=== PATIENT | female | born 1960 | race Caucasian/White ===

== ENCOUNTER 2022-12-03 20:43 | Emergency (ER) | payer BC ==
--- OUTSIDE RECORDS SUMMARY | 2022-12-03 20:50 | XMS REPORT | Continuity of Care Document ---
:1960 Author Organization [facility] t Address [address] [place] [address] [place] [address] Care Team Providers Name Role Phone Simi Encinas MD Primary Care Physician CITLALLI CHATMAN Attending Clinician Unavailable NAVDEEP ERIC Attending Clinician Unavailable NAVDEEP ERIC Attending Clinician Unavailable Navdeep Eric MD Attending Clinician Mathew Attending Clinician Unavailable ESEQUIEL CRYSTAL Attending Clinician Unavailable Mathew Admitting Clinician Unavailable Payers Payer Name Policy Type Policy Number Effective Date Expiration Date S [facility] [id number] 2019 POS OPEN ACCESS 00:00:00 [place] [id number] 2022 [place]00[id number] 2022 [place] 00:00:00 [id number] [place] [id number] Problems Condition Condition Condition Status Onset Resolution Last Treating Co mments Source Name Details Category Date Date Treatment Clinician Date Cervical Cervical Problem Active [place] spondylosi Spondylosi 4-25 [facility] Lumbar Lumbar Problem Active [place] spondylosi Spondylosi 4-25 [facility] s 00:00: ty 00 [facility] 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 Hyperostos 00 Ho spita is of is of l thoracic Thoracic Clinic s spine Spine Nausea Nausea Problem Active 2021-07 [place] 07-18 Communi 00:00: ty 00 [facility]ospita Clinics Diarrhea Diarrhea Problem Active 2021-07 [place] 07-18 [facility]i 00:00: ty 00 [facility] Clinics History of History of Problem Active 2021-07 [place] diverticul Diverticul 07-18 [facility] mmuni itis itis 00:00: ty 00 Hospita Clinics Viral Viral Problem Active 2021-07 [place] syndrome Syndrome 07-18 Commun i 00:00: ty 00 Hospita Clinics Fever Fever Problem Active 2021-07 [place] 07-18 [facility] 00[facility]: [facility] Allergies, Adverse Reactions, Alerts Allergy Allergy Status Severity Reaction(s) Onset Inactive Treating Comm ents Source Name Type Date Date Clinician NO KNOWN Drug Active Univers ALLERGIE Class ity of S [facility] TERRAMYC Allergy Active [place] IN to Communi substanc ty e Hospita Clinics Social History Social Habit Start Date Stop Date Quantity Comments Source Gender identity [facility] Sexual orientation Method [facility] History of tobacco Cigarette Smoker University of use [facility] Exposure to 2022-11-20 2022-11-30 Not sure [facility] SARS-CoV-2 (event) 00:00:00 08:09:00 [facility] Tobacco use and 2022-11-30 2022-11-30 Smokeless Universit y of exposure 00:00:00 00:00:00 tobacco non-user [facility] dical Branch Cigarettes smoked 2022-11-30 2022-11-30 Univers ity of current (pack per 00:00:00 00:00:00 [facility] ) - Reported Branch Cigarette 2022-11-30 2022-11-30 University of pack-years 00:00:00 00:00:00 [facility] Sex Assigned At [birth year] [facility] Smoking Status Start Date Stop Date Source Heavy Tobacco Smoker [place] Comm [facility] [place] [facility] Tobacco smoking consumption Meth [facility] unknown Smokes tobacco daily 2022-11-30 00:00:00 Univers ity of [facility] Medications Ordered Filled Start Stop Current Ordering Indication Dosage Frequency Signature Comments Components Source Medication Medication Date Date Medication? Clinician (SIG) Name Name alprazolam alprazolam No alprazolam [place] 0.25 mg 0.25 mg 0.25 mg Commun i tablet TAKE tablet TAKE tablet ty 1 TABLET BY 1 TABLET BY TAKE 1 Hospita MOUTH AT MOUTH AT TABLET BY l BEDTIME BEDTIME MOUTH AT Clinics NEEDED NEEDED BEDTIME NEEDED cyclobenzap cyclobenzap No cyclobenza [place] rine 5 mg rine 5 mg nabor 5 mg Communi tablet TAKE tablet TAKE tablet ty 1 TABLET BY 1 TABLET BY TAKE 1 Hospita MOUTH THREE MOUTH THREE TABLET BY l TIMES DAILY TIMES DAILY MOUTH Clinics FOR 3 DAYS FOR 3 DAYS THREE NEEDED NEEDED TIMES DAILY FOR 3 DAYS NEEDED dicyclomine dicyclomine No 1 TID dicyclomin [place] 20 mg 20 mg e 20 mg Communi tablet Take tablet Take tablet ty 1 tablet 3 1 tablet 3 Take 1 H ospita times a day times a day tablet 3 l by oral by oral times a Clinic s route as route as day by needed for needed for oral route 3 days. FOR 3 days. FOR as needed ABDOMINAL ABDOMINAL for 3 CRAMPING CRAMPING days. FOR ABDOMINAL CRAMPING meclizine meclizine No 1 TID meclizine [place] 25 mg 25 mg 25 mg Communi tablet Take tablet Take tablet ty 1 tablet 3 1 tablet 3 Take 1 H ospita times a day times a day tablet 3 l by oral by oral times a Clinic s route. route. day by oral route. dicyclomine dicyclomine No 1 TID dicyclomin [place] 20 mg 20 mg e 20 mg Communi tablet Take tablet Take tablet ty 1 tablet 3 1 tablet 3 Take 1 H ospita times a day times a day tablet 3 l by oral by oral times a Clinic s route as route as day by needed for needed for oral route 3 days. FOR 3 days. FOR as needed ABDOMINAL ABDOMINAL for 3 CRAMPING CRAMPING days. FOR ABDOMINAL CRAMPING ondansetron ondansetron No 1 TID ondansetro [place] 4 mg 4 mg n 4 mg Communi disintegrat disintegrat disintegra ty ing tablet ing tablet ting [facility] Place 1 Place 1 tablet l tablet [address] 1 Clin ics times a day times a day tablet 3 by by times a translingua translingua day by l route as l route as translingu needed for needed for al route 3 days. FOR 3 days. FOR as needed NAUSEA/VOMI NAUSEA/VOMI for 3 TING TING days. FOR NAUSEA/VOM ITING alprazolam alprazolam No 1 alprazolam [place] 0.25 mg 0.25 mg 0.25 mg Commun i tablet Take tablet Take tablet ty 1 tablet as 1 tablet as Take 1 Hospita needed by needed by tablet as l oral route oral route needed by Clinics at bedtime. at bedtime. oral route at bedtime. cyclobenzap cyclobenzap No 1 TID cyclobenza [place] rine 5 mg rine 5 mg nabor 5 mg Communi tablet Take tablet Take tablet ty 1 tablet 3 1 tablet 3 Take 1 H ospita times a day times a day tablet 3 l by oral by oral times a Clinic s route as route as day by needed for needed for oral route 3 days. 3 days. as needed for 3 days. dicyclomine dicyclomine No 1 TID dicyclomin [place] 20 mg 20 mg e 20 mg Communi tablet Take tablet Take tablet ty 1 tablet 3 1 tablet 3 Take 1 H ospita times a day times a day tablet 3 l by oral by oral times a Clinic s route as route as day by needed for needed for oral route 3 days. FOR 3 days. FOR as needed ABDOMINAL ABDOMINAL for 3 CRAMPING CRAMPING days. FOR ABDOMINAL CRAMPING alprazolam alprazolam No alprazolam [place] 0.25 mg 0.25 mg 0.25 mg Commun i tablet TAKE tablet TAKE tablet ty 1 TABLET BY 1 TABLET BY TAKE 1 Hospita MOUTH AT MOUTH AT TABLET BY l BEDTIME BEDTIME MOUTH AT Clinics NEEDED NEEDED BEDTIME NEEDED cyclobenzap cyclobenzap No cyclobenza [place] rine 5 mg rine 5 mg nabor 5 mg Communi tablet TAKE tablet TAKE tablet ty 1 TABLET BY 1 TABLET BY TAKE 1 Hospita MOUTH THREE MOUTH THREE TABLET BY l TIMES DAILY TIMES DAILY MOUTH Clinics FOR 3 DAYS FOR 3 DAYS THREE NEEDED NEEDED TIMES DAILY FOR 3 DAYS NEEDED dicyclomine dicyclomine No 1 TID dicyclomin [place] 20 mg 20 mg e 20 mg Communi tablet Take tablet Take tablet ty 1 tablet 3 1 tablet 3 Take 1 H ospita times a day times a day tablet 3 l by oral by oral times a Clinic s route as route as day by needed for needed for oral route 3 days. FOR 3 days. FOR as needed ABDOMINAL ABDOMINAL for 3 CRAMPING CRAMPING days. FOR ABDOMINAL CRAMPING meclizine meclizine No 1 TID meclizine [place] 25 mg 25 mg 25 mg Communi tablet Take tablet Take tablet ty 1 tablet 3 1 tablet 3 Take 1 H ospita times a day times a day tablet 3 l by oral by oral times a Clinic s route. route. day by oral route. alprazolam alprazolam No alprazolam [place] 0.25 mg 0.25 mg 0.25 mg Commun i tablet TAKE tablet TAKE tablet ty 1 TABLET BY 1 TABLET BY TAKE 1 Hospita MOUTH AT MOUTH AT TABLET BY l BEDTIME BEDTIME MOUTH AT Clinics NEEDED NEEDED BEDTIME NEEDED cyclobenzap cyclobenzap No cyclobenza [place] rine 5 mg rine 5 mg [place] 5 mg Communi tablet TAKE tablet TAKE tablet ty 1 TABLET BY 1 TABLET BY TAKE 1 Hospita MOUTH THREE MOUTH THREE TABLET BY l TIMES DAILY TIMES DAILY MOUTH Clinics FOR 3 DAYS FOR 3 DAYS THREE NEEDED NEEDED TIMES DAILY FOR 3 DAYS NEEDED dicyclomine dicyclomine No 1 TID dicyclomin [place] 20 mg 20 mg e 20 mg Communi tablet Take tablet Take tablet ty 1 tablet 3 1 tablet 3 Take 1 H ospita times a day times a day tablet 3 l by oral by oral times a Clinic s route as route as day by needed for needed for oral route 3 days. FOR 3 days. FOR as needed ABDOMINAL ABDOMINAL for 3 CRAMPING CRAMPING days. FOR ABDOMINAL CRAMPING meclizine meclizine No 1 TID meclizine [place] 25 mg 25 mg 25 mg Communi tablet Take tablet Take tablet ty 1 tablet 3 1 tablet 3 Take 1 H ospita times a day times a day tablet 3 l by oral by oral times a Clinic s route. route. day by oral route. Vital Signs Vital Name Observation Time Observation Value Comments Source BP Diastolic 2022-11-12 00:00:00 78 mm[Hg] [facility] Height 2022-11-12 00:00:00 66 [in_i] [facility] BMI (Body Mass 2022-11-12 00:00:00 26.2 kg/m2 [facility]) [facility] BP Systolic 2022-11-12 00:00:00 156 mm[Hg] [facility] Body Weight 2022-11-12 00:00:00 2595.2 [oz_av] [facility] Body Weight 2022-11-03 00:00:00 2601.6 [oz_av] [facility] s BP Diastolic 2022-11-03 00:00:00 85 mm[Hg] [facility] Height 2022-11-03 00:00:00 66 [in_i] [facility] s BMI (Body Mass 2022-11-03 00:00:00 26.2 kg/m2 [facility] BP Systolic 2022-11-03 00:00:00 165 mm[Hg] [facility] BP Diastolic 2022-10-27 00:00:00 75 mm[Hg] [facility] Height 2022-10-27 00:00:00 66 [in_i] [facility] BMI (Body Mass 2022-10-27 00:00:00 26.1 kg/m2 [facility] BP Systolic 2022-10-27 00:00:00 154 mm[Hg] [facility] Body Weight 2022-10-27 00:00:00 2582.4 [oz_av] [facility] s BP Diastolic 2022-10-13 00:00:00 76 mm[Hg] [facility] Height 2022-10-13 00:00:00 66 [in_i] [facility] s BP Systolic 2022-10-13 00:00:00 174 mm[Hg] [facility] Body Weight 2022-10-13 00:00:00 2569.6 [oz_av] [facility] s BP Diastolic 2022-05-18 00:00:00 84 mm[Hg] [facility] Height 2022-05-18 00:00:00 66 [in_i] [facility] s BMI (Body Mass 2022-05-18 00:00:00 23.2 kg/m2 [facility] BP Systolic 2022-05-18 00:00:00 132 mm[Hg] [facility] Body Weight 2022-05-18 00:00:00 2297.6 [oz_av] [facility] s Procedures Procedure Date / Time Performing Clinician Source Performed XR, cervical spine, 4 or 2022-10-19 00:00:[address] XR, lumbar spine 2022-10-19 00:00:00 [facility] XR, thoracic spine, 2 2022-10-19 00:00:00 [facility] US, upper arm 2022-10-13 00:00:00 [facility] XR, hand, 2 view 2022-10-13 00:00:00 [facility] Cholelithotomy [facility] Methicillin Resistant [facility] Staphylococcus Aureus [facility] linics Swab Laparoscopic Adjustable [facility] G[facility] Banding [facility] Appendectomy [facility] Repair of Tendo Achilles [facility] Delivery [facility] Plan of Care Planned Activity Planned Date Details Comments Source Future Scheduled Test 2022-12-03 COLONOSCOPY Method [facility] 20:49:10 SCREENING [code = COLONOSCOPY SCREENING] Future Scheduled Test 2022-12-03 SHINGLES VACCINES (1 [facility] 20:49:10 of 2) [code = SHINGLES VACCINES (1 of 2)] Future Scheduled Test 2022-12-03 INFLUENZA VACCINE [facility] 20:49:10 [code = INFLUENZA VACCINE] Future Scheduled Test 2022-12-03 COVID-19 VACCINE [facility] 20:49:10 (#1) [code = COVID-19 VACCINE (#1)] Future Scheduled Test 2022-12-03 Hepatitis C Method [facility] 20:49:10 screening (procedure) [code = 341565295] Future Scheduled Test 2022-12-03 [facility] 20:49:10 malignant neoplasm of cervix (procedure) [code = 788412274] Future Scheduled Test 2022-12-03 BREAST CANCER [facility] 20:49:10 SCREENING [code = BREAST CANCER SCREENING] Future Scheduled Test 2022-10-16 Hepatitis C Method [facility] 05:26:00 screening (procedure) [code = 206570828] Future Scheduled Test 2022-10-16 [facility] 05:26:00 malignant neoplasm of cervix (procedure) [code = 547028091] Future Scheduled Test 2022-10-16 BREAST CANCER [facility] 05:26:00 SCREENING [code = BREAST CANCER SCREENING] Future Scheduled Test 2022-10-16 COLONOSCOPY Method [facility] 05:26:00 SCREENING [code = COLONOSCOPY SCREENING] Future Scheduled Test 2022-10-16 SHINGLES VACCINES (1 [facility] 05:26:00 of 2) [code = SHINGLES VACCINES (1 of 2)] Future Scheduled Test 2022-10-16 INFLUENZA VACCINE [facility] 05:26:00 [code = INFLUENZA VACCINE] Future Scheduled Test 2022-10-16 COVID-19 VACCINE [facility] 05:26:00 (#1) [code = COVID-19 VACCINE (#1)] Instructions [facility] s Encounters Start End Encounter Admission Attending Care Care Encounter Source Date/Time Date/Time Type Type Clinicians Facility Department ID 2021-06-04 Outpatient [facility] [id number] [place] 17:02:53 Health 2021-05-28 Outpatient LURDES [facility] [id number] [place] 14:31:05 [facility] 2023-01-25 2023-01-25 Outpatient NAVDEEP HERNANDEZ [facility] [id number] [facility] 14:20:00 14:20:00 NAVDEEP ERIC [facility] 2022-11-30 2022-11-30 Outpatient NAVDEEP HERNANDEZ [facility] [id number] [facility] 08:40:00 09:09:50 NAVDEEP ERIC [facility] 2022-11-30 2022-11-30 Tim Eric [facility] [id number] Univers 00:00:00 00:00:00 (Out) [facility] [id number] [place] [id number] Santos as SANDEEP?BLEA [id number] [place] [id number] [facility] OFFICE [facility] 2022-11-17 2022-11-17 Outpatient L_[facility] [id number] [place] 00:00:00 00:00:00 0509 Commun i ty Hospita l [facility] 2022-11-13 2022-11-13 Outpatient L_[facility] [id number] [place] 00:00:00 00:00:00 0508 Commun i ty Hospita l [facility] 2022-11-12 2022-11-12 Outpatient L_[facility] [id number] [place] 00:00:00 00:00:00 0504 Commun i ty Hospita [facility] 2022-11-12 2022-11-12 [facility] [place] [facility] [place] 04 [place] 00:00:00 00:00:00 Hemant Counts Include 234 Beds At The [facility] KAMLESH Balderas APRN, [facility]: [address], [facility] [address] [place] [phone] , Ph. 2022-11-11 2022-11-11 Outpatient L_[facility] [id number] [place] 00:00:00 00:00:00 0503 Commun i ty Hospita [facility] 2022-11-03 2022-11-03 [facility] [place] [facility] [place] [id number] 25 [place] 00:00:00 00:00:00 Hemant Counts Include 234 Beds At The [facility] Trinh collins APRN, KAMLESH, [facility]: [address], [facility] [address] [place] [phone] , Ph. 2022-10-27 2022-10-27 Outpatient L_[facility] [id number] 023 [place] 00:00:00 00:00:00 0418 Commun i ty Hospita l Clinics 2022-10-27 2022-10-27 Outpatient L_Pena [facility] [id number] [place] 00:00:00 00:00:00 0420 Commun i ty Hospita l Clinics 2022-10-27 2022-10-27 Outpatient L_Pena [facility] [id number] [place] 00:00:00 00:00:00 0425 Commun i ty Hospita l Clinics 2022-10-27 2022-10-27 Sheri [facility] [place] 18 [place] 00:00:00 00:00:00 Pat Marcos APRN, MSN, [facility]: [facility] [address] [place] [address], CLINIC [address] [place] [phone] , Ph. 2022-10-26 2022-10-26 Outpatient L_Pena [facility] [id number] [place] 00:00:00 00:00:00 0417 Commun i ty Hospita l Clinics 2022-10-22 2022-10-22 Outpatient L_Pena [facility] [id number] [place] 00:00:00 00:00:00 0413 Commun i ty Hospita l Clinics 2022-10-13 2022-10-13 Outpatient L_Pena [facility] [id number] [place] 00:00:00 00:00:00 0404 Commun i ty Hospita l Clinics 2022-10-13 2022-10-13 [facility] [place] [facility] [place] 04 [place] 00:00:00 00:00:00 Hemant Counts Include 234 Beds At The [facility] Trinh collins APRN, MSN, [facility]: [facility] [address] [place] [address], CLINIC [address] [place] [phone] , Ph. 2022-10-12 2022-10-12 Outpatient L_Pena [facility] [id number] [place] 00:00:00 00:00:00 0403 Commun i ty Hospita l Clinics 2022-09-10 2022-09-10 Outpatient L_Hemant [facility] [id number] [place] 00:00:00 00:00:00 0302 Commun i ty Hospita [facility] 2022-05-18 2022-05-18 Outpatient L_Hemant [facility] [id number] [place] 00:00:00 00:00:00 1107 Commun i ty Hospita [facility] 2022-05-18 2022-05-18 Sheri [facility] [place] [facility] [place] [id number] [place] 00:00:00 00:00:00 Pat Marcos Comm karina BARNES, MSN, Hospital - ty [facility]: [address], CLINIC [address], [place] [phone] , Ph. 2021-09-19 2021-09-19 Outpatient MHIE [facility] [id number] [place] 07:30:00 07:30:00 10 bhanu Wu 2021-09-19 2021-09-19 Outpatient MHIE [facility] [id number] [facility] 07:30:00 07:30:00 10 bhanu Wu 2021-05-26 2021-05-26 Outpatient MHIE [facility] [id number] [facility] 14:00:00 14:00:00 09 bhanu Wu 2021-05-26 2021-05-26 Outpatient MHIE [facility] [id number] [place] 14:00:00 14:00:00 09 bhanu Wu 2021-03-11 2021-03-11 Outpatient MHIE MHIE [id number] [facility] 16:15:00 16:15:00 08 bhanu Wu 2021-03-11 2021-03-11 Outpatient MHIE [facility] [id number] [facility] 16:15:00 16:15:00 08 bhanu Wu 2020-12-19 2020-12-19 Outpatient MARAH [facility] [id number] 00:00:00 00:00:00 ESEQUIEL Herzog [facility] 2020-09-16 2020-09-16 Outpatient MHIE MHIE [id number] [place] 08:30:00 08:30:00 07 bhanu Wu 2020-09-16 2020-09-16 Outpatient MHIE [facility]IE [id number] [facility] 08:30:00 08:30:00 07 l Bryce 2020-07-18 2020-07-18 Outpatient MHIE [facility] [id number] [facility] 12:15:00 12:15:00 06 l Bryce 2020-07-18 2020-07-18 Outpatient MHIE [facility]IE [id number] [facility] 12:15:00 12:15:00 06 l Bryce 2020-05-27 2020-05-27 Outpatient MHIE [facility] [id number] [facility] 12:15:00 12:15:00 05 l [place] 2020-05-27 2020-05-27 Outpatient MHIE MHIE [id number] [facility] 12:15:00 12:15:00 05 l [place] 2020-01-23 2020-01-23 Outpatient MHIE MHIE [id number] [facility] 15:30:00 15:30:00 04 l [place] 2020-01-23 2020-01-23 Outpatient MHIE MHIE [id number] [facility] 15:30:00 15:30:00 04 l [place] 2019-08-23 2019-08-23 Outpatient MHIE MHIE [id number] [facility] 10:30:00 10:30:00 02 l Bryce 2019-08-23 2019-08-23 Outpatient MHIE [facility] [id number] [facility] 10:30:00 10:30:00 02 l Bryce 2019-08-23 2019-08-23 Outpatient MHIE [facility]IE [id number] [facility] 10:15:00 10:15:00 03 l Bryce 2019-08-23 2019-08-23 Outpatient MHIE [facility] [id number] [facility] 10:15:00 10:15:00 03 l Bryce 2019-08-22 2019-08-22 Outpatient MHIE [facility] [id number] [facility] 10:15:00 10:15:00 01 l [place] 2019-08-22 2019-08-22 Outpatient MHIE MHIE [id number] [facility] 10:15:00 10:15:00 01 l [place] 2019-08-15 2019-08-15 Outpatient MHIE [facility]IE [id number] [facility] 13:30:00 13:30:00 00 l Bryce 2019-08-15 2019-08-15 Outpatient [facility] [id number] [facility] 13:30:00 13:30:00 00 bhanu Wu Results This patient has no known results.
--- NOTE | 2022-12-03 22:11 | RAD REPORT ---
EXAM DESCRIPTION: CT - Head Brain Wo Cont - 12/03/2022 9:57 pm CLINICAL HISTORY: Dizziness COMPARISON: none TECHNIQUE: Computed axial tomography of the head was obtained. IV contrast was not requested. All CT scans are performed using dose optimization technique as appropriate and may include automated exposure control or mA/KV adjustment according to patient size. FINDINGS: An intracranial bleed is not seen The ventricles are normal in caliber No significant hypodense areas within the brain visualized No extra-axial fluid collection is noted. Fluid within the sinuses/ mastoids is not seen IMPRESSION: No acute intracranial abnormality is seen If patient's symptoms persist MRI of the brain would be recommended
[2022-12-03] MEDS ORDERED: MECLIZINE HCL 12.5 MG TAB ONE (22:16)
[2022-12-03 22:31] LABS: Hematocrit 38.3 % (36.0-45.0); Lymphocytes % 27.3 % (15.3-44.8); MCV 90.2 fL (80-100); MPV 8.2 fL (7.6-11.3); RBC Red Blood Cell Count 4.24 M/uL (3.86-4.86)
[2022-12-03 22:47] LABS: ALT/SGPT 25 U/L (13-56); AST/SGOT 20 U/L (15-37); Albumin 3.4 g/dL (3.4-5.0); Alkaline Phosphatase 69 U/L (45-117); BUN Blood Urea Nitrogen 14 mg/dL (7-18); Bicarbonate 26 mEq/L (21-32); Bilirubin Total 0.2 mg/dL (0.2-1.0); Glomerular Filtration Rate 79 ml/min (=/>90); Glucose Level 114 mg/dL (74-106); Potassium 3.7 mEq/L (3.5-5.1); Protein, Total 7.3 g/dL (6.4-8.2); Sodium Level 141 mEq/L (136-145); Troponin High Sensitivity 5.2 pg/mL (<58.9)
[2022-12-03 22:59] LABS: Bilirubin Direct < 0.1 mg/dL (0-0.2); Bilirubin Indirect, Calculated ND mg/dL (0.2-0.8)
[2022-12-03 23:01] LABS: Protime INR 0.89
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
[2022-12-04 01:13] VITALS: BP 152/67; TEMP 98; O2SAT 98
--- NOTE | 2022-12-04 10:30 | RAD REPORT ---
EXAM DESCRIPTION: RAD - Chest Single View - 12/03/2022 10:55 pm CLINICAL HISTORY: CHEST PAIN COMPARISON: 10/22/2022. TECHNIQUE: XR CHEST 1 VIEW 12/03/2022 9:39 PM CDT FINDINGS: Cardiac silhouette is normal in size. Lungs are clear without consolidation, atelectasis, mass or edema. There is no pleural effusion. There is no pneumothorax. There are no acute osseous fin dings. IMPRESSION: Clear lungs. Electronically signed by: Serg Lund MD 12/03/2022 11:14 PM CDT Due to temporary technical issues with the PACS/Fluency reporting system, reports are being signed by the in house radiologist without review as a courtesy to ensure prompt reporting. The interpreting r adiologist is fully responsible for the content of the report.
--- NOTE | 2022-12-06 07:31 | EKG ---
Test Date: 2022-12-03 Test Time: 21:12:15 Clinical Trial Data Manager: ABDIAZIZ MEASUREMENT RESULTS: Intervals: Rate: 65 MD: 132 QRSD: 86 QT: 414 QTc: 430 [place]: P: 66 MD: 132 QRS: 43 T: 74 INTERPRETIVE STATEMENTS: Normal sinus rhythm Nonspecific ST abnormality Abnormal ECG Compared to ECG 10/22/2022 06:29:14 ST (T wave) deviation now present Electronically Signed On 12-06-22 07:25:56 CDT by Xu Steele
== END 2022-12-04 00:52 | disposition home or self-care (01) ==
LOC: ER 20:43
DX: R42 Dizziness and giddiness (principal); R11.0 Nausea; R07.9 Chest pain, unspecified; Z88.3 Allergy status to other anti-infective agents
CPT/HCPCS: 93005; 85025; 80048; 36415; 83735; 85610; 80076; 85730; 84484; 70450; 71045; 99284; J8597

== ENCOUNTER 2022-12-14 20:52 | Observation (INO) | payer BC ==
--- OUTSIDE RECORDS SUMMARY | 2022-12-14 21:21 | XMS REPORT | Continuity of Care Document ---
:1960 Author Organization [facility] t Address [address] [facility] [address] [place] [address] Care Team Providers Name Role Phone JUSTIN MARCOS Primary Care Physician Unavailable CITLALLI CHATMAN Attending Clinician Unavailable NAVDEEP ERIC Attending Clinician Unavailable NAVDEEP ERIC Attending Clinician Unavailable Mathew Attending Clinician Unavailable Navdeep Eric MD Attending Clinician ESEQUIEL CRYSTAL Attending Clinician Unavailable LSharda Admitting Clinician Unavailable Payers Payer Name Policy Type Policy Number Effective Date Expiration Date S elin [facility] [id number] 2019 POS OPEN ACCESS 00:00:00 [place] [id number] 2022 00:00:[place] [id number] 2022 [place] 00:00:00 [id number] [place] [id number] Problems Condition Condition Condition Status Onset Resolution Last Treating Co mments Source Name Details Category Date Date Treatment Clinician Date Cervical Cervical Problem Active [place] spondylosi Spondylosi 4-25 [facility] ty [facility] Lumbar Lumbar Problem Active [place] spondylosi Spondylosi 4-25 [facility] s 00:00: ty [facility] 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:00: ty hyperostos Hyperostos 00 Ho spita is of is of l thoracic Thoracic Clinic s spine Spine Nausea Nausea Problem Active 2021-07 [place] 07-18 Communi 00:00: ty 00 Hospita Clinics Diarrhea Diarrhea Problem Active 2021-07 [place] y 07-18 Communi 00:00: ty 00 [facility]ospita [facility] Clinics History of History of Problem Active 2021-07 S weeny diverticul Diverticul 07-18 Co mmuni itis itis 00:00: ty 00 Hospita Clinics Viral Viral Problem Active 2021-07 [place] syndrome Syndrome 07-18 Commun i 00:00: ty 00 Hospita l Clinics Fever Fever Problem Active 2021-07 [place] 07-18 [facility] Allergies, Adverse Reactions, Alerts Allergy Allergy Status Severity Reaction(s) Onset Inactive Treating Comm ents Source Name Type Date Date Clinician NO KNOWN Drug Active [facility] ALLERGIE Class ity of S [facility] TERRAMYC Allergy Active [place] IN to Communi substanc ty e Hospita l Clinics Social History Social Habit Start Date Stop Date Quantity Comments Source Gender identity [facility] Sexual orientation [facility] History of tobacco Cigarette Smoker University of use [facility] Exposure to 2022-11-20 2022-11-30 Not sure [facility] SARS-CoV-2 (event) 00:00:00 08:09:00 [facility] Tobacco use and 2022-11-30 2022-11-30 Smokeless Universit y of exposure 00:00:00 00:00:00 tobacco non-user [facility] dical Branch Cigarettes smoked 2022-11-30 2022-11-30 [facility] ity of current (pack per 00:00:00 00:00:00 [facility] ) - Reported Branch Cigarette 2022-11-30 2022-11-30 University of pack-years 00:00:00 00:00:00 [facility] Sex Ass[birth year] At [birth year] Jainism 00:00:00 00:00:00 Hospital Smoking Status Start Date Stop Date Source Heavy Tobacco Smoker [facility] Tobacco smoking consumption [facility] unknown Smokes tobacco daily 2022-11-30 00:00:00 Univers ity of [facility] Medications Ordered Filled Start Stop Current Ordering Indication Dosage Frequency Signature Comments Components Source Medication Medication Date Date Medication? Clinician (SIG) Name Name alprazolam alprazolam No alprazolam [place] 0.25 mg 0.25 mg 0.25 mg Commun i tablet TAKE tablet TAKE tablet ty 1 TABLET BY 1 TABLET BY TAKE 1 Hospita MOUTH AT MOUTH AT TABLET BY l BEDTIME BEDTIME MOUTH AT Clinics NEEDED NEEDED BEDTIME NEEDED cyclobenzap cyclobenzap No cyclobenza [place] rine 5 mg rine 5 mg nabor 5 mg Communi tablet TAKE tablet TAKE tablet ty 1 TABLET BY 1 TABLET BY TAKE 1 Hospita MOUTH THREE MOUTH THREE TABLET BY l TIMES DAILY TIMES DAILY MOUTH Clinics FOR 3 DAYS FOR 3 DAYS THREE NEEDED NEEDED TIMES DAILY FOR 3 DAYS NEEDED dicyclomine dicyclomine No 1 TID dicyclomin [place] 20 mg 20 mg e 20 mg [...] CRAMPING meclizine meclizine No 1 TID meclizine [place] 25 mg 25 mg 25 mg Communi tablet Take tablet Take tablet ty 1 tablet 3 1 tablet 3 Take 1 H ospita times a day times a day tablet 3 l by oral by oral times a Clinic s route. route. day by oral route. alprazolam alprazolam No alprazolam [place] 0.25 mg 0.25 mg 0.25 mg Commun i tablet TAKE tablet TAKE tablet ty 1 TABLET BY 1 TABLET BY TAKE 1 Hospita MOUTH AT MOUTH AT TABLET BY l BEDTIME BEDTIME MOUTH AT Clinics NEEDED NEEDED BEDTIME NEEDED cyclobenzap cyclobenzap No cyclobenza [place] rine 5 mg rine 5 mg nabor 5 mg Communi tablet TAKE tablet TAKE tablet ty 1 TABLET BY 1 TABLET BY TAKE 1 Hospita MOUTH THREE MOUTH THREE TABLET BY l TIMES DAILY TIMES DAILY MOUTH Clinics FOR 3 DAYS FOR 3 DAYS THREE NEEDED NEEDED TIMES DAILY FOR 3 DAYS NEEDED dicyclomine dicyclomine No 1 TID dicyclomin [place] 20 mg 20 mg e 20 mg [...] 3 CRAMPING CRAMPING days. FOR ABDOMINAL CRAMPING lisinopril lisinopril No 1 Q1D lisinopril [place] 5 mg tablet 5 mg tablet 5 mg C ommuni Take 1 Take 1 tablet ty tablet tablet Take 1 Hospita every day every day tablet l by oral by oral every day Clin ics route in route in by oral the the route in morning. morning. the morning. meclizine meclizine No 1 TID meclizine [place] 25 mg 25 mg 25 mg Communi tablet Take tablet Take tablet ty 1 tablet 3 1 tablet 3 Take 1 H ospita times a day times a day tablet 3 l by oral by oral times a Clinic s route. route. day by oral route. dicyclomine dicyclomine No 1 TID dicyclomin [place] 20 mg 20 mg e 20 mg [...] CRAMPING ondansetron ondansetron No 1 TID ondansetro [place] 4 mg 4 mg n 4 mg [...] NAUSEA/VOM ITING alprazolam alprazolam No 1 alprazolam [place] 0.25 mg 0.25 mg 0.25 mg Commun i tablet Take tablet Take tablet ty 1 tablet as 1 tablet as Take 1 Hospita needed by needed by tablet as l oral route oral route needed by Clinics at bedtime. at bedtime. oral route at bedtime. cyclobenzap cyclobenzap No 1 TID cyclobenza [place] rine 5 mg rine 5 mg nabor [...] days. dicyclomine dicyclomine No 1 TID dicyclomin [place] 20 mg 20 mg e 20 mg [...] FOR ABDOMINAL CRAMPING alprazolam alprazolam No alprazolam [place] 0.25 mg 0.25 mg 0.25 mg Commun i tablet TAKE tablet TAKE tablet ty 1 TABLET BY 1 TABLET BY TAKE 1 Hospita MOUTH AT MOUTH AT TABLET BY l BEDTIME BEDTIME MOUTH AT Clinics NEEDED NEEDED BEDTIME NEEDED cyclobenzap cyclobenzap No cyclobenza [place] rine 5 mg rine 5 mg nabor 5 mg Communi tablet TAKE tablet TAKE tablet ty 1 TABLET BY 1 TABLET BY TAKE 1 Hospita MOUTH THREE MOUTH THREE TABLET BY l TIMES DAILY TIMES DAILY MOUTH Clinics FOR 3 DAYS FOR 3 DAYS THREE NEEDED NEEDED TIMES DAILY FOR 3 DAYS NEEDED dicyclomine dicyclomine No 1 TID dicyclomin [place] 20 mg 20 mg e 20 mg [...] CRAMPING meclizine meclizine No 1 TID meclizine [place] 25 mg 25 mg 25 mg Communi tablet Take tablet Take tablet ty 1 tablet 3 1 tablet 3 Take 1 H ospita times a day times a day tablet 3 l by oral by oral times a Clinic s route. route. day by oral route. alprazolam alprazolam No alprazolam [place] 0.25 mg 0.25 mg 0.25 mg Commun i tablet TAKE tablet TAKE tablet ty 1 TABLET BY 1 TABLET BY TAKE 1 Hospita MOUTH AT MOUTH AT TABLET BY l BEDTIME BEDTIME MOUTH AT Clinics NEEDED NEEDED BEDTIME NEEDED cyclobenzap cyclobenzap No cyclobenza [place] rine 5 mg rine 5 mg nabor 5 mg Communi tablet TAKE tablet TAKE tablet ty 1 TABLET BY 1 TABLET BY TAKE 1 Hospita MOUTH THREE MOUTH THREE TABLET BY l TIMES DAILY TIMES DAILY MOUTH Clinics FOR 3 DAYS FOR 3 DAYS THREE NEEDED NEEDED TIMES DAILY FOR 3 DAYS NEEDED dicyclomine dicyclomine No 1 TID dicyclomin [place] 20 mg 20 mg e 20 mg [...] CRAMPING meclizine meclizine No 1 TID meclizine [place] 25 mg 25 mg 25 mg Communi tablet Take tablet Take tablet ty 1 tablet 3 1 tablet 3 Take 1 H ospita times a day times a day tablet 3 l by oral by oral times a Clinic s route. route. day by oral route. Vital Signs Vital Name Observation Time Observation Value Comments Source BP Diastolic 2022-12-10 00:00:00 82 mm[Hg] [facility] Height 2022-12-10 00:00:00 66 [in_i] [facility] BMI (Body Mass 2022-12-10 00:00:00 26.9 kg/m2 [facility] s BP Systolic 2022-12-10 00:00:00 172 mm[Hg] [facility] Body Weight 2022-12-10 00:00:00 2664 [oz_av] [facility] Systolic blood 2022-11-30 13:30:00 148 mm[Hg] Univer sity of pressure [facility] Diastolic blood 2022-11-30 13:30:00 90 mm[Hg] Unive rsity of pressure [facility] Heart rate 2022-11-30 13:29:00 71 /min Universi ty [facility] Respiratory rate 2022-11-30 13:29:00 18 /min [facility] Body height 2022-11-30 13:29:00 167.6 cm Universi [facility] Body weight 2022-11-30 13:29:00 75.705 kg Universi [facility] BMI 2022-11-30 13:29:00 26.94 kg/m2 [facility] Oxygen saturation in 2022-11-30 13:29:00 99 /min [facility] Arterial blood by [facility] Pulse oximetry Branch BP Diastolic 2022-11-12 00:00:00 78 mm[Hg] [facility] Height 2022-11-12 00:00:00 66 [in_i] [facility] BMI (Body Mass 2022-11-12 00:00:00 26.2 kg/m2 [facility]) [facility] s BP Systolic 2022-11-12 00:00:00 156 mm[Hg] [facility] Body Weight 2022-11-12 00:00:00 2595.2 [oz_av] [facility] s Body Weight 2022-11-03 00:00:00 2601.6 [oz_av] [facility] s BP Diastolic 2022-11-03 00:00:00 85 mm[Hg] [facility] s Height 2022-11-03 00:00:00 66 [in_i] [facility] BMI (Body Mass 2022-11-03 00:00:00 26.2 kg/m2 [facility]) [facility] s BP Systolic 2022-11-03 00:00:00 165 mm[Hg] [facility] s BP Diastolic 2022-10-27 00:00:00 75 mm[Hg] [facility] 2022-10-27 00:00:00 66 [in_i] [facility] BMI (Body Mass 2022-10-27 00:00:00 26.1 kg/m2 [facility]) [facility] s BP Systolic 2022-10-27 00:00:00 154 mm[Hg] [facility] Body Weight 2022-10-27 00:00:00 2582.4 [oz_av] [facility] s BP Diastolic 2022-10-13 00:00:00 76 mm[Hg] [facility] Height 2022-10-13 00:00:00 66 [in_i] [facility] BP Systolic 2022-10-13 00:00:00 174 mm[Hg] [facility] Body Weight 2022-10-13 00:00:00 2569.6 [oz_av] [facility] s BP Diastolic 2022-05-18 00:00:00 84 mm[Hg] [facility] Height 2022-05-18 00:00:00 66 [in_i] [facility] BMI (Body Mass 2022-05-18 00:00:00 23.2 kg/m2 [facility]) [facility] s BP Systolic 2022-05-18 00:00:00 132 mm[Hg] [facility] Body Weight 2022-05-18 00:00:00 2297.6 [oz_av] [facility] s Procedures Procedure Date / Time Performing Clinician Source Performed US, duplex, carotid 2022-12-10 00:00:00 [facility] XR, cervical spine, 4 or 2022-10-19 00:00:[address] XR, lumbar spine 2022-10-19 00:00:00 [facility] XR, thoracic spine, 2 2022-10-19 00:00:00 [facility] US, upper arm 2022-10-13 00:00:00 [facility] XR, hand, 2 view 2022-10-13 00:00:00 [facility] Cholelithotomy [facility] Methicillin Resistant [facility] Staphylococcus Aureus [facility] Swab Laparoscopic Adjustable [place] C [facility] Gastric Banding [facility] Appendectomy [facility] Repair of Tendo Achilles [facility] Delivery [facility] Plan of Care Planned Activity Planned Date Details Comments Source Diagnostic Test 2022-12-10 CBC w/ auto diff [place] C [facility] Pending 00:00:00 [code = CBC w/ auto Hospital Clinics diff] Diagnostic Test 2022-12-10 BNP (B-type [place] Commu nity Pending 00:00:00 natriuretic [facility] s peptide), serum or plasma [code = BNP (B-type natriuretic peptide), serum or plasma] Diagnostic Test 2022-12-10 magnesium, serum or On license of [facility] Pending 00:00:00 plasma [code = Hospital Clin ics magnesium, serum or plasma] Diagnostic Test 2022-12-10 CMP, serum or plasma [facility] Pending 00:00:00 [code = CMP, serum [facility] Clinics or plasma] Diagnostic Test 2022-12-10 vitamin D2, [place] Trinh nit Pending 00:00:00 25-hydroxy, serum [facility] [code = vitamin D2, 25-hydroxy, serum] Diagnostic Test 2022-12-10 HbA1c (hemoglobin [facility] Pending 00:00:00 A1c), blood [code = Hospital [facility] HbA1c (hemoglobin A1c), blood] Diagnostic Test 2022-12-10 TSH + free T4, serum [facility] Pending 00:00:00 [code = TSH + free [facility] T4, serum] Future Scheduled Test 2022-12-[address] [facility] 20:49:10 malignant neoplasm of colon (procedure) [code = 725603859] Future Scheduled Test 2022-12-03 SHINGLES VACCINES (1 [facility] 20:49:10 of 2) [code = SHINGLES VACCINES (1 of 2)] Future Scheduled Test 2022-12-03 INFLUENZA VACCINE [facility] 20:49:10 [code = INFLUENZA VACCINE] Future Scheduled Test 2022-12-03 COVID-19 VACCINE [facility] 20:49:10 (#1) [code = COVID-19 VACCINE (#1)] Future Scheduled Test 2022-12-[address] [facility] 20:49:10 screening (procedure) [code = 223952421] Future Scheduled Test 2022-12-[address] [facility] 20:49:10 malignant neoplasm of cervix (procedure) [code = 807189119] Future Scheduled Test 2022-12-[address] [facility] 20:49:10 SCREENING [code = BREAST CANCER SCREENING] Future Scheduled Test 2022-12-03 COVID-19 VACCINE [facility] 20:49:10 (#1) [code = COVID-19 VACCINE (#1)] Future Scheduled Test 2022-12-[address] [facility] 20:49:10 screening (procedure) [code = 451186688] Future Scheduled Test 2022-12-[address] [facility] 20:49:10 malignant neoplasm of cervix (procedure) [code = 821759245] Future Scheduled Test 2022-12-[address] [facility] 20:49:10 SCREENING [code = BREAST CANCER SCREENING] Future Scheduled Test 2022-12-[address] [facility] 20:49:10 SCREENING [code = COLONOSCOPY SCREENING] Future Scheduled Test 2022-12-03 SHINGLES VACCINES (1 [facility] 20:49:10 of 2) [code = SHINGLES VACCINES (1 of 2)] Future Scheduled Test 2022-12-03 INFLUENZA VACCINE [facility] 20:49:10 [code = INFLUENZA VACCINE] Future Scheduled Test 2022-10-[address] [facility] 05:26:00 screening (procedure) [code = 812702452] Future Scheduled Test 2022-10-[address] 05:26:00 malignant neoplasm of cervix (procedure) [code = 524943269] Future Scheduled Test 2022-10-[address] [facility] 05:26:00 SCREENING [code = BREAST CANCER SCREENING] Future Scheduled Test 2022-10-[address] [facility] 05:26:00 SCREENING [code = COLONOSCOPY SCREENING] Future Scheduled Test 2022-10-16 SHINGLES VACCINES (1 [facility] 05:26:00 of 2) [code = SHINGLES VACCINES (1 of 2)] Future Scheduled Test 2022-10-16 INFLUENZA VACCINE [facility] 05:26:00 [code = INFLUENZA VACCINE] Future Scheduled Test 2022-10-16 COVID-19 VACCINE [facility] 05:26:00 (#1) [code = COVID-19 VACCINE (#1)] Future Appointment 2022-12-[address] 00:00:[address] [address] Instructions [place] [facility] Clinic s Encounters Start End Encounter Admission Attending Care Care Encounter Source Date/Time Date/Time Type Type Clinicians Facility Department ID 2021-06-04 Outpatient [facility] [id number] [place] 17:02:53 [facility] 2021-05-28 Outpatient LURDES [facility] [id number] [place] 14:31:05 [facility] 2023-01-25 2023-01-25 Outpatient NAVDEEP HERNANDEZ [facility] [id number] Univers 14:20:00 14:20:00 NAVDEEP ERIC [facility] 2022-12-14 2022-12-14 Outpatient NAVDEPE HERNANDEZ [facility] [id number] Univers 09:20:00 09:20:00 NAVDEEP ERIC [facility] 2022-12-11 2022-12-11 Outpatient L_Hemant [facility] [id number] [place] 00:00:00 00:00:00 0605 Commun i ty [facility] Clinics 2022-12-10 2022-12-10 Outpatient L_Hemant [facility] [id number] [place] 00:00:00 00:00:00 0601 Commun i ty Hospita l [facility] 2022-12-10 2022-12-10 Justin [facility] [place] 00:00:00 00:00:00 Pat Marcos [facility] FIRE OBSERVER, MSN, [facility] ty [facility]: [address], CLINIC [address] [facility], [place] [address] , Ph. 2022-11-30 2022-11-30 Office Hernesto [facility] [id number] Univers 08:40:00 09:09:50 Visit [facility] [id number] ity of [place] [id number] Santos as SANDEEP?BLEA [id number] [address] [facility] 2022-11-30 2022-11-30 Outpatient R NAVDEEP ERIC [facility] [id number] Univers 08:40:00 09:09:50 [facility] 2022-11-30 2022-11-30 Letter Hernesto [facility] [id number] Univers 00:00:00 00:00:00 (Out) [facility] [id number] ity of [place] [id number] [place] as SANDEEP?BLEA [id number] [address] [facility] 2022-11-17 2022-11-17 [facility] [id number] [place] 00:00:00 00:00:00 0509 Commun i ty Hosp[facility] 2022-11-13 2022-11-13 Outpatient L_[facility] [id number] [place] 00:00:00 00:00:00 0508 Commun i ty Hospita l Clinics 2022-11-12 2022-11-12 Outpatient [facility] [id number] [place] 00:00:00 00:00:00 0504 Commun i ty Hospita l Clinics 2022-11-12 2022-11-12 [facility] [place] [facility] [place] 04 [place] 00:00:00 00:00:00 Pat Marcos APRN, MSN, [facility] ty [facility]: [address], CL[address], [place] [address] , Ph. 2022-11-11 2022-11-11 [facility] [id number] [place] 00:00:00 00:00:00 0503 Commun i ty Hospita l Clinics 2022-11-03 2022-11-03 Justin [facility] [place] 00:00:00 00:00:00 Pat Marcos APRN, MSN, [facility] ty [facility]: [facility] [address] [facility], CLINIC [address], [place] [address] , Ph. 2022-10-27 2022-10-27 Outpatient L_Pena [facility] [id number] [place] 00:00:00 00:00:00 0418 Commun i ty Hospita l Clinics 2022-10-27 2022-10-27 Outpatient L_Pena [facility] [id number] [place] 00:00:00 00:00:00 0420 Commun i ty Hospita l Clinics 2022-10-27 2022-10-27 Outpatient L_Pena [facility] [id number] [place] 00:00:00 00:00:00 0425 Commun i ty Hospita l Clinics 2022-10-27 2022-10-27 Justin [facility] [place] [id number] [place] 00:00:00 00:00:00 Pat Marcos APRN, MSN, [facility] ty [facility]: [facility] [address] [facility], CLINIC [address], [place] [address] , Ph. 2022-10-26 2022-10-26 Outpatient L_Pena [facility] [id number] [place] 00:00:00 00:00:00 0417 Commun i ty Hospita l Clinics 2022-10-22 2022-10-22 Outpatient L_Pena [facility] [id number] [place] 00:00:00 00:00:00 0413 Commun i ty Hospita l Clinics 2022-10-13 2022-10-13 Outpatient L_Pena [facility] [id number] [place] 00:00:00 00:00:00 0404 Commun i ty Hospita l Clinics 2022-10-132022-10-13 Justin [facility] [place] [id number] [place] 00:00:00 00:00:00 Pat Marcos APRN, KAMLESH, [facility]: [address], [address], [place] [address] , Ph. 2022-10-12 2022-10-12 Outpatient L_Pena [facility] [id number] [place] 00:00:00 00:00:00 0403 Commun i ty Hosp[facility] 2022-09-10 2022-09-10 Outpatient L_Pena [facility] [id number] [place] 00:00:00 00:00:00 0302 Commun i ty [facility] 2022-05-18 2022-05-18 Outpatient L_Saula [facility] [id number] [place] 00:00:00 00:00:00 1107 Commun i ty Hosp[facility] 2022-05-18 2022-05-18 [facility] [place] [facility] [place] [id number] [place] 00:00:00 00:00:00 Pat Marcos APRN, MSN, [facility]: [address], [address], [place] [address] , Ph. 2021-09-19 2021-09-19 Outpatient MHIE [facility] [id number] [facility] 07:30:00 07:30:00 10 bhanu Wu 2021-09-19 2021-09-19 Outpatient MHIE [facility] [id number] [facility] 07:30:00 07:30:00 10 bhanu Wu 2021-05-26 2021-05-26 Outpatient MHIE [facility]IE [id number] [facility] 14:00:00 14:00:00 09 bhanu Wu 2021-05-26 2021-05-26 Outpatient MHIE [facility]IE [id number] [facility] 14:00:00 14:00:00 09 bhanu Wu 2021-03-11 2021-03-11 Outpatient MHIE MHIE [id number] [facility] 16:15:00 16:15:00 08 bhanu Wu 2021-03-11 2021-03-11 Outpatient MHIE MHIE [id number] [facility] 16:15:00 16:15:00 08 bhanu Wu 2020-12-19 2020-12-19 Outpatient MARAH [facility] [id number] [place] 00:00:00 00:00:[address] 2020-09-16 2020-09-16 Outpatient MHIE MHIE [id number] [place] 08:30:00 08:30:00 07 bhanu Wu 2020-09-16 2020-09-16 Outpatient MHIE [facility] [id number] [place] 08:30:00 08:30:00 07 bhanu Wu 2020-07-18 2020-07-18 Outpatient MHIE [facility] [id number] [facility] 12:15:00 12:15:00 06 bhanu Wu 2020-07-18 2020-07-18 Outpatient MHIE MHIE [id number] [facility] 12:15:00 12:15:00 06 l Preston 2020-05-27 2020-05-27 Outpatient MHIE MHIE [id number] [facility] 12:15:00 12:15:00 05 l Preston 2020-05-27 2020-05-27 Outpatient MHIE MHIE [id number] [facility] 12:15:00 12:15:00 05 l Preston 2020-01-23 2020-01-23 Outpatient MHIE MHIE [id number] [facility] 15:30:00 15:30:00 04 l Preston 2020-01-23 2020-01-23 Outpatient MHIE MHIE [id number] [facility] 15:30:00 15:30:00 04 l Bryce 2019-08-23 2019-08-23 Outpatient MHIE [facility] [id number] [facility] 10:30:00 10:30:00 02 l Preston 2019-08-23 2019-08-23 Outpatient MHIE [facility] [id number] [facility] 10:30:00 10:30:00 02 l Preston 2019-08-23 2019-08-23 Outpatient MHIE MHIE [id number] [facility] 10:15:00 10:15:00 03 l Preston 2019-08-23 2019-08-23 Outpatient MHIE [facility]IE [id number] [facility] 10:15:00 10:15:00 03 l Bryce 2019-08-22 2019-08-22 Outpatient MHIE MHIE [id number] [facility] 10:15:00 10:15:00 01 l Bryce 2019-08-22 2019-08-22 Outpatient MHIE MHIE [id number] [facility] 10:15:00 10:15:00 01 bhanu Wu 2019-08-15 2019-08-15 Outpatient MHIE MHIE [id number] [facility] 13:30:00 13:30:00 00 bhanu Wu 2019-08-15 2019-08-15 Outpatient MHIE [facility] [id number] [facility] 13:30:00 13:30:00 00 bhanu Wu Results This patient has no known results.
[2022-12-14] MEDS ORDERED: MECLIZINE HCL 12.5 MG TAB ONE (22:50)
[2022-12-14 23:33] LABS: Protime INR 0.94
[2022-12-14 23:43] LABS: ALT/SGPT 23 U/L (13-56); AST/SGOT 21 U/L (15-37); Albumin 3.5 g/dL (3.4-5.0); Alkaline Phosphatase 66 U/L (45-117); BUN Blood Urea Nitrogen 15 mg/dL (7-18); Bicarbonate 23 mEq/L (21-32); Bilirubin Total 0.2 mg/dL (0.2-1.0); Glomerular Filtration Rate 88 ml/min (=/>90); Glucose Level 120 mg/dL (74-106); Magnesium 1.9 mg/dL (1.6-2.4); NT PRO-BNP 107 pg/mL (<125); Potassium 3.7 mEq/L (3.5-5.1); Protein, Total 7.1 g/dL (6.4-8.2); Sodium Level 141 mEq/L (136-145); Troponin High Sensitivity 5.5 pg/mL (<58.9)
[2022-12-14 23:45] LABS: Bilirubin Direct < 0.1 mg/dL (0-0.2); Bilirubin Indirect, Calculated ND mg/dL (0.2-0.8)
[2022-12-15 00:09] LABS: Absolute Lymphocytes (CBC) 2.3 K/uL (0.7-4.9); Hematocrit 36.1 % (36.0-45.0); Lymphocytes % 30.7 % (15.3-44.8); MCV 90.1 fL (80-100); MPV 8.6 fL (7.6-11.3)
[2022-12-15] MEDS ORDERED: METOCLOPRAMIDE 10 MG/2mL INJ ONE (03:38)
[2022-12-15] MEDS ORDERED: NA CHLORIDE 0.9% 50 ML ONE (03:39)
[2022-12-15] MEDS ORDERED: DIPHENHYDRAMINE 50 MG/ML VIAL ONE (03:39)
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
--- NOTE | 2022-12-15 06:43 | ER ---
Nurse's Notes [facility] Name: Rosario Cloud Age: 62 yrs Sex: Female : 1960 Arrival Date: 12/14/2022 Time: 20:52 Bed 17 Private MD: Diagnosis: Dizziness and giddiness;Angina pectoris, unspecified;Other peripheral vertigo Presentation: 12/14 21:24 Chief complaint: Patient states: my blood pressure was 180/85, I am having tingling to vc1 both hands my lips and both feet and pain to both sides of my neck. I have a coldness to my right arm. I am really dizzy. Coronavirus screen: Vaccine status: Patient reports receiving the 2nd dose of the covid vaccine. plus booster; Moderna Client denies travel out of the [place] in the last 14 days. At this time, the client does not indicate any symptoms associated with coronavirus-19. Ebola Screen: Patient negative for fever greater than or equal to 101.5 degrees Fahrenheit, and additional compatible Ebola Virus Disease symptoms Patient denies exposure to infectious person. Patient denies travel to an Ebola-affected area in the 21 days before illness onset. No symptoms or risks identified at this time. Initial Sepsis Screen: Does the patient meet any 2 criteria? No. Patient's initial sepsis screen is negative. Does the patient have a suspected source of infection? No. Patient's initial sepsis screen is negative. Risk Assessment: Do you want to hurt yourself or someone else? Patient reports no desire to harm self or others. Note been dizzy for 2 months. Onset of symptoms was December 14, 2022 at 08:00. 21:24 Method Of Arrival: Wheelchair vc1 21:24 Acuity: WHIT 3 vc1 Triage Assessment: 21:30 General: Appears in no apparent distress. uncomfortable, Behavior is calm, cooperative, vc1 appropriate for age. Pain: Complains of pain in bilateral neck Pain currently is 6 out of 10 on a pain scale. EENT: No deficits noted. No signs and/or symptoms were reported regarding the EENT system. Neuro: Level of Consciousness is awake, alert, obeys commands, Oriented to person, place, time, situation, Appropriate for age Reports dizziness, headache. Cardiovascular: No deficits noted. Respiratory: Airway is patent Respiratory effort is even, unlabored, Respiratory pattern is regular, symmetrical. GI: No deficits noted. No signs and/or symptoms were reported involving the gastrointestinal system. : No deficits noted. No signs and/or symptoms were reported regarding the genitourinary system. Derm: No deficits noted. No signs and/or symptoms reported regarding the dermatologic system. Musculoskeletal: No deficits noted. No signs and/or symptoms reported regarding the musculoskeletal system. Historical: - Allergies: 21:28 terramycin; vc1 - Home Meds: 21:28 Meclizine Oral [Active]; lisinopril 5 mg Oral tablet daily [Active]; vc1 - PMHx: 21:28 vertigo; Anxiety; vc1 - PSHx: 21:28 Cholecystectomy; section; Appendectomy; Lap band; vc1 - Immunization history:: Client reports receiving the 2nd dose of the Covid vaccine. - Social history:: Smoking status: Patient reports the use of cigarette tobacco products, smokes one pack cigarettes per day. - Family history:: not pertinent. Screenin/06 00:[address] [facility] ED Fall Risk Assessment (Adult) History of falling in the last 3 months, jb4 including since admission No falls in past 3 months (0 pts) Confusion or Disorientation No (0 pts) Score/Fall Risk Level 0 - 2 = Low Risk Oriented to surroundings, Maintained a safe environment. Abuse screen: Denies threats or abuse. Nutritional screening: No deficits noted. Tuberculosis screening: No symptoms or risk factors identified. Assessment: 12/14 22:28 Reassessment: Patient appears in no apparent distress at this time. Patient and/or jb4 family updated on plan of care and expected duration. Pain level reassessed. Patient is alert, oriented x 3, equal unlabored respirations, skin warm/dry/pink. see triage note. 23:20 Reassessment: Patient appears in no apparent distress at this time. Patient and/or jb4 family updated on plan of care and expected duration. Pain level reassessed. Patient is alert, oriented x 3, equal unlabored respirations, skin warm/dry/pink. 12/15 00:42 Reassessment: Patient appears in no apparent distress at this time. Patient and/or jb4 family updated on plan of care and expected duration. Pain level reassessed. Patient is alert, oriented x 3, equal unlabored respirations, skin warm/dry/pink. 02:00 Reassessment: Patient appears in no apparent distress at this time. Patient and/or jb4 family updated on plan of care and expected duration. Pain level reassessed. Patient is alert, oriented x 3, equal unlabored respirations, skin warm/dry/pink. Patient states feeling better. Patient states symptoms have improved. 03:26 Reassessment: Patient and/or family updated on plan of care and expected duration. Pain vc1 level reassessed. Patient is alert, oriented x 3, equal unlabored respirations, skin warm/dry/pink. provider at bedside. 04:05 Reassessment: Patient appears in no apparent distress at this time. Patient and/or jb4 family updated on plan of care and expected duration. Pain level reassessed. Patient is alert, oriented x 3, equal unlabored respirations, skin warm/dry/pink. 05:30 Reassessment: Patient appears in no apparent distress at this time. Patient and/or jb4 family updated on plan of care and expected duration. Pain level reassessed. Patient is alert, oriented x 3, equal unlabored respirations, skin warm/dry/pink. PT ambulated to the restroom with steady gait. Patient states feeling better. 06:50 Reassessment: Patient appears in no apparent distress at this time. Patient and/or jb4 family updated on plan of care and expected duration. Pain level reassessed. Patient is alert, oriented x 3, equal unlabored respirations, skin warm/dry/pink. 07:00 Reassessment: RECD REPORT FROM VAIBHAV GOODE. 62YO WF P/W DIZZINESS. PT ON ER HOLD. bp Vital Signs: 12/14 21:24 BP 172 / 94; Pulse 66; Resp 16; Temp 98.6; Pulse Ox 100% ; Weight 73.03 kg; Height 5 vc1 ft. 6 in. ; Pain 6/10; 23:20 BP 131 / 66; Pulse 85; Resp 21; Pulse Ox 98% on R/A; jb4 12/15 00:42 BP 128 / 62; Pulse 54; Resp 16; Pulse Ox 96% on R/A; jb4 02:00 BP 125 / 70; Pulse 51; Resp 19; Pulse Ox 95% on R/A; jb4 03:00 BP 139 / 75; Pulse 49; Pulse Ox 99% ; vc1 04:05 BP 134 / 70; Pulse 76; Resp 15; Temp 98.3(TE); Pulse Ox 96% on R/A; jb4 05:30 BP 149 / 71; Pulse 60; Resp 15; Pulse Ox 98% on R/A; jb4 06:50 BP 145 / 76; Pulse 53; Resp 16; Pulse Ox 96% on R/A; jb4 12/14 21:24 Body Mass Index 25.99 (73.03 kg, 167.64 cm) vc1 12/14 21:24 Pain Scale: Adult vc1 ED Course: 12/14 20:54 Patient arrived in ED. ag3 21:28 Triage completed. vc1 21:30 Arm band placed on right wrist. vc1 21:45 John Teague MD is Attending Physician. sp4 23:11 Head Brain Wo Cont In Process Unspecified. EDMS 12/15 00:42 Marcos Duncan, RN is Primary Nurse. jb4 00:42 Patient has correct armband on for positive identification. Bed in low position. Call jb4 light in reach. Side rails up X 1. Client placed on continuous cardiac and pulse oximetry monitoring. NIBP monitoring applied. playground monitor on. 04:14 CT Head Angio In Process Unspecified. EDMS 04:15 CT Neck Angio In Process Unspecified. EDMS 06:42 Fernando Dean MD is Hospitalizing Provider. sp4 07:03 Primary Nurse role handed off by Marcos Duncan, RN bp 07:03 Neville Harvey, RUSSEL is Primary Nurse. bp Administered Medications: 12/14 22:47 Drug: Meclizine PO 50 mg Route: PO; jb4 23:15 Follow up: Response: No adverse reaction; Marked relief of symptoms jb4 12/15 03:48 Drug: diphenhydrAMINE IVP 25 mg Route: IVP; Site: left antecubital; vc1 05:35 Follow up: Response: No adverse reaction; Marked relief of symptoms jb4 03:48 Drug: metoCLOPramide IVP 10 mg Route: IVP; Site: right wrist; vc1 05:35 Follow up: Response: No adverse reaction; Marked relief of symptoms jb4 Medication: 00:42 VIS not applicable for this client. jb4 Outcome: 06:42 Decision to Hospitalize by Provider. sp4 10:34 Patient left the ED. kj1 Signatures: Dispatcher [employer] EDMS Marcos Duncan RN RN jb4 Neville Harvey, RN RN Erinn Higgins ag3 Eliza Paulino kj1 Yani Lainez RN RN vc1 John Teague MD MD sp4 Corrections: (The following items were deleted from the chart) 02:31 02:00 Reassessment: Patient appears in no apparent distress at this time. Patient jb4 and/or family updated on plan of care and expected duration. Pain level reassessed. Patient is alert, oriented x 3, equal unlabored respirations, skin warm/dry/pink. jb4 04:22 04:05 Pulse 76bpm; Resp 15bpm; Pulse Ox 96% RA; jb4 jb4
--- NOTE | 2022-12-15 06:43 | EDPHYS ---
Physician Documentation [facility] Name: Rosario Cloud Age: 62 yrs Sex: Female : 1960 Arrival Date: 12/14/2022 Time: 20:52 Bed 17 Private MD: ED Physician John Teague HPI: 12/14 21:45 This 62 yrs old Female presents to ER via Wheelchair with complaints of sp4 Dizziness. 12/15 03:14 OralPatient with history of vertigo and anxiety presents with 2 days of worsening sp4 dizziness, vertigo, numbness tingling of the lips, tingling bilateral arms, chest tightness, feeling unwell.. Patient's physician is currently investigating patient for heart failure. Patient states she was not able to get with parer recently for an office exams. Patient requests investigation for dizziness and chest tightness. . Historical: - Allergies: 12/14 21:28 terramycin; vc1 - Home Meds: 21:28 Meclizine Oral [Active]; lisinopril 5 mg Oral tablet daily [Active]; vc1 - PMHx: 21:28 vertigo; Anxiety; vc1 - PSHx: 21:28 Cholecystectomy; section; Appendectomy; Lap band; vc1 - Immunization history:: Client reports receiving the 2nd dose of the Covid vaccine. - Social history:: Smoking status: Patient reports the use of cigarette tobacco products, smokes one pack cigarettes per day. - Family history:: not pertinent. ROS: 12/15 03:14 Constitutional: Negative for fever, chills, and weight loss, positive for dizziness, sp4 feeling unwell, numbness and tingling. Eyes: Negative for injury, pain, redness, and discharge, ENT: Negative for injury, pain, and discharge, Neck: Negative for injury, pain, and swelling, Cardiovascular: Negative for palpitations, and edema, positive for chest tightness Respiratory: Negative for shortness of breath, cough, wheezing, and pleuritic chest pain, Abdomen/GI: Negative for abdominal pain, nausea, vomiting, diarrhea, and constipation, Back: Negative for injury and pain, : Negative for injury, bleeding, discharge, and swelling, MS/Extremity: Negative for injury and deformity, Skin: Negative for injury, rash, and discoloration, Neuro: Negative for headache, weakness, numbness, tingling, and seizure, Psych: Negative for depression, anxiety, Allergy/Immunology: Negative for hives, rash, and allergies Endocrine: Negative for neck swelling, polydipsia, polyuria, polyphagia, and weight changes Hematologic/Lymphatic: Negative for swollen nodes, abnormal bleeding, and unusual bruising Exam: 03:14 Constitutional: This is a well developed, well nourished patient who is awake, alert, sp4 and in no acute distress. Head/Face: Normocephalic, atraumatic. Eyes: Pupils equal round and reactive to light, extra-ocular motions intact. Lids and lashes normal. Conjunctiva and sclera are not injected. Cornea within normal limits. Periorbital areas with no swelling, redness, or edema. ENT: Nares patent. No nasal discharge, no septal abnormalities noted. Tympanic membranes are normal and external auditory canals are clear. Oropharynx with no redness, swelling, or masses, exudates, or evidence of obstruction, uvula midline. Mucous membranes moist. Neck: Trachea midline, no thyromegaly or masses palpated, and no cervical lymphadenopathy. Supple, full range of motion without nuchal rigidity, or vertebral point tenderness. No Meningismus. Chest/axilla: Normal chest wall appearance and motion. Nontender with no deformity. No lesions are appreciated. Cardiovascular: Regular rate and rhythm with a normal S1 and S2. No gallops, murmurs, or rubs. Normal PMI, no JVD. No pulse deficits. Respiratory: Lungs have equal breath sounds bilaterally, clear to auscultation and percussion. No rales, rhonchi or wheezes noted. No increased work of breathing, no retractions or nasal flaring. Abdomen/GI: Soft, non-tender, with normal bowel sounds. No distension or tympany. No guarding or rebound. No evidence of tenderness throughout. Back: No spinal tenderness. No costovertebral tenderness. Skin: Warm, dry with normal turgor. Normal color with no rashes, no lesions, and no evidence of cellulitis. MS/ Extremity: Pulses equal, no cyanosis. Neurovascular intact. Full, normal range of motion. Neuro: Awake and alert, GCS 15, oriented to person, place, time, and situation. Cranial nerves II-XII grossly intact. Motor strength 5/5 in all extremities. Sensory grossly intact. Psych: Awake, alert, with orientation to person, place and time. Behavior, mood, and affect are within normal limits 03:14 ECG was reviewed by the Attending Physician. EKG time 2211, there is sinus bradycardia sp4 at the rate of [address] elevation or depression, overall unremarkable EKG Vital Signs: 12/14 21:24 BP 172 / 94; Pulse 66; Resp 16; Temp 98.6; Pulse Ox 100% ; Weight 73.03 kg; Height 5 vc1 ft. 6 in. ; Pain 6/10; 23:20 BP 131 / 66; Pulse 85; Resp 21; Pulse Ox 98% on R/A; jb4 12/15 00:42 BP 128 / 62; Pulse 54; Resp 16; Pulse Ox 96% on R/A; jb4 02:00 BP 125 / 70; Pulse 51; Resp 19; Pulse Ox 95% on R/A; jb4 03:00 BP 139 / 75; Pulse 49; Pulse Ox 99% ; vc1 04:05 BP 134 / 70; Pulse 76; Resp 15; Temp 98.3(TE); Pulse Ox 96% on R/A; jb4 05:30 BP 149 / 71; Pulse 60; Resp 15; Pulse Ox 98% on R/A; jb4 06:50 BP 145 / 76; Pulse 53; Resp 16; Pulse Ox 96% on R/A; jb4 12/14 21:24 Body Mass Index 25.99 (73.03 kg, 167.64 cm) vc1 12/14 21:24 Pain Scale: Adult vc1 MDM: 12/14 21:46 Patient medically screened. sp4 12/15 03:14 Differential diagnosis: cardiac arrhythmia, CVA, generalized weakness, head injury, sp4 hyperventilation, hypovolemia, idiopathic dizziness, near-syncope, syncope. Data reviewed: vital signs, nurses notes, old medical records, lab test result(s), EKG, radiologic studies, CT scan. Consideration of Admission/Observation Patient was admitted/placed on observation. Escalation of care including admission/observation considered. ED course: Labs reveal blood sugar 120, otherwise normal chemistry panel, BNP 107, troponin 5.5, CBC is normal, PT/INR normal, CT head reveals normal study. . 06:41 ED course: CT angiography head and neck with IV contrast revealed unremarkable CT sp4 angiogram of the neck for age without dissection or hemodynamically significant stenosis. An unremarkable CT angiography of the brain without evidence of hemodynamically significant stenosis without aneurysm or AVM. . ED course: Patient at this time warrants admission for additional work-up as may be advised by the admitting MD.. 12/14 22:58 Order name: Basic Metabolic Panel; Complete Time: 02:42 EDMS 12/14 22:58 Order name: Liver (Hepatic) Function; Complete Time: 02:42 EDMS / 22:58 Order name: Troponin High Sensitivity; Complete Time: 02:42 EDMS 12/14 22:58 Order name: NT PRO-BNP; Complete Time: 02:42 EDMS / 22:58 Order name: Magnesium; Complete Time: 02:42 EDMS / 22:58 Order name: CBC with Automated Diff; Complete Time: 02:42 EDMS 12/14 22:58 Order name: Protime (+INR); Complete Time: 02:42 EDMS 12/15 02:43 Order name: Troponin High Sensitivity; Complete Time: 06:43 sp4 12/15 09:50 Order name: Troponin High Sensitivity EDMS / 09:50 Order name: Lipid Profile EDMS 12/15 09:50 Order name: Thyroid Stimulating Hormone EDMS / 22:02 Order name: CT Head Brain wo Cont sp4 / 22:46 Order name: Head Brain Wo Cont EDMS 12/15 03:25 Order name: CT Head Angio sp4 12/15 03:25 Order name: CT Neck Angio 4 12/14 21:46 Order name: EKG; Complete Time: 00:17 sp4 12/14 21:46 Order name: Cardiac monitoring; Complete Time: 22:23 sp4 12/14 21:46 Order name: EKG - Nurse/Tech; Complete Time: 22:23 sp4 12/14 21:46 Order name: IV Saline Lock; Complete Time: 22:23 sp4 12/14 21:46 Order name: Labs collected and sent; Complete Time: 22:23 sp4 12/14 21:46 Order name: O2 Per Protocol; Complete Time: 22:23 sp4 12/14 21:46 Order name: O2 Sat Monitoring; Complete Time: 22:23 sp4 EC:14 Rate is 56 beats/min. Rhythm is regular, Sinus bradycardia. QRS [place] is Normal. [place] sp4 interval is normal. QRS interval is normal. QT interval is normal. T waves are Normal. No ST changes noted. Clinical impression: No evidence of ischemia. Interpreted by me. Administered Medications: 12/14 22:47 Drug: Meclizine PO 50 mg Route: PO; jb4 23:15 Follow up: Response: No adverse reaction; Marked relief of symptoms jb4 12/15 03:48 Drug: diphenhydrAMINE IVP 25 mg Route: IVP; Site: left antecubital; vc1 05:35 Follow up: Response: No adverse reaction; Marked relief of symptoms jb4 03:48 Drug: metoCLOPramide IVP 10 mg Route: IVP; Site: right wrist; vc1 05:35 Follow up: Response: No adverse reaction; Marked relief of symptoms jb4 Disposition Summary: 12/15/22 06:42 Hospitalization Ordered Hospitalization Status: Observation sp4 Provider: Fernando Dean sp4 Condition: Stable sp4 Problem: new sp4 Symptoms: have improved sp4 Bed/Room Type: Standard sp4 Location: [facility] ER HOLD(12/15/22 09:10) bp Room Assignment: ERHOLD-(12/15/22 09:10) bp Diagnosis - Dizziness and giddiness sp4 - Angina pectoris, unspecified sp4 - Other peripheral vertigo sp4 Forms: - Medication Reconciliation Form sp4 - SBAR form sp4 Signatures: Dispatcher [employer] EDMarcos Perdomo RN RN jb4 Neville Harvey RN RN bp Calcote, Vanessa, RN RN vc1 John Teague MD MD sp4 Corrections: (The following items were deleted from the chart) 00:21 00:17 BASIC METABOLIC PANEL+C.LAB.BRZ ordered. EDMS EDMS 00:21 00:17 CBC+H.LAB.BRZ ordered. EDMS EDMS 00:21 00:17 HEPATIC FUNCTION+C.LAB.BRZ ordered. EDMS EDMS 00:21 00:17 MAGNESIUM+C.LAB.BRZ ordered. EDMS EDMS 00:21 00:17 PROBNP+C.LAB.BRZ ordered. EDMS EDMS 00:21 00:17 PROTIME (+INR)+COAG.LAB.BRZ ordered. EDMS EDMS 00:21 00:17 Troponin High Sensitivity+C.LAB.BRZ ordered. EDMS EDMS 09:10 06:42 Telemetry/MedSurg (observation) sp4 bp 09:10 06:42 sp4 bp
[2022-12-15] MEDS ORDERED: ONDANSETRON 4 MG/2 ML VIAL IV PRN (08:23)
[2022-12-15] MEDS ORDERED: ENOXAPARIN 40 MG/0.4 ML SQ ONE (08:53)
[2022-12-15] MEDS ORDERED: ENOXAPARIN 40 MG/0.4 ML SQ SCH (09:00)
[2022-12-15 09:49] LABS: Thyroid Stimulating Hormone 1.62 uIU/mL (0.358-3.740); Troponin High Sensitivity 5.3 pg/mL (<58.9)
[2022-12-15 10:50] VITALS: TEMP 98.3
[2022-12-15 10:53] VITALS: BP 145/76; O2SAT 96
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
--- NOTE | 2022-12-15 15:41 | RAD REPORT ---
EXAM DESCRIPTION: CT - Head Brain Wo Cont - 12/15/2022 6:48 am CLINICAL HISTORY: Dizziness. TECHNIQUE: 5 mm axial images of the intracranial structures were obtained without intravenous contra st. Coronal and sagittal reformatted images were obtained. COMPARISON: 10/22/2022.. DOSE OPTIMIZATION: This facility uses dose optimization techniques as appropriate to perform exams, i ncluding at least one of the following techniques: 1. Automated exposure control. 2. Adjustment of the mA and/or kV according to patient size (this includes techniques or standardized protocols for targeted exams where dose is matched to the indication/reason for exam, i.e. extremiti es or head). 3. Use of iterative reconstructive technique. FINDINGS: No abnormal acute extracerebral fluid collections are demonstrated. The cortical sulci, ventricles, and cisterns are within normal limits. There are no areas of altered attenuation to suggest acute hemorrhage, acute infarct, or mass lesio n. The visualized portions of the paranasal sinuses and mastoid air cells are clear. IMPRESSION: Normal study. Electronically signed by: Alen Hernandez MD 12/15/2022 12:02 AM CDT Due to temporary technical issues with the PACS/Fluency reporting system, reports are being signed by the in house radiologists without review as a courtesy to insure prompt reporting. The interpreting radiologist is fully responsible for the content of the report.
--- NOTE | 2022-12-15 15:43 | RAD REPORT ---
EXAM DESCRIPTION: CT - Head angio - 12/15/2022 6:47 am CLINICAL HISTORY: DIZZINESS COMPARISON: None. TECHNIQUE: CT HEAD ANGIOGRAPHY WITH IV CONTRAST, CT NECK ANGIOGRAPHY WITH IV CONTRAST on 12/15/2022 3: 25 AM CDT This exam was performed according to our departmental dose-optimization program, which includes autom ated exposure control, adjustment of the mA and/or kV according to patient size and/or use of iterati ve reconstruction technique. MIP reconstructions were generated. Stenoses are calculated by NASCET criteria. FINDINGS: The visualized aortic arch and origins of the great vessels unremarkable. The common carotid arteries are patent and symmetric bilaterally. No hemodynamically significant stenosis is observed at the common carotid bifurcations or origins of the internal carotid arteries bilaterally. Vertebral arteries are unremarkable without evidence of pseudoaneurysm, hemodynamically significant s tenosis, or dissection. Intracranially the cavernous segments of the internal carotid arteries are patent and symmetric bilat erally. Vertebral basilar system within normal limits for age. No aneurysm identified within the [place]. Anterior, middle, and posterior cerebral circulations are patent and symmetric bilaterally. Dural sinuses are well opacified and without filling defect. IMPRESSION: Unremarkable CT angiogram of the neck for age without dissection or hemodynamically sign ificant stenosis. Unremarkable CTA of the brain without evidence of hemodynamically significant stenosis, aneurysm or A VM. CAROTID STENOSIS REFERENCE USING NASCET CRITERIA: % ICA stenosis = (1 - narrowest ICA diameter/diameter of distal cervical ICA) x 100. Mild - <50% stenosis. Moderate - 50-69% stenosis. Severe - 70-94% stenosis. Near occlusion - 95-99% stenosis. Occluded - 100% stenosis. Electronically signed by: Serg Lund MD 12/15/2022 6:19 AM CDT Due to temporary technical issues with the PACS/Fluency reporting system, reports are being signed by the in house radiologists without review as a courtesy to insure prompt reporting. The interpreting radiologist is fully responsible for the content of the report.
--- NOTE | 2022-12-15 15:44 | RAD REPORT ---
EXAM DESCRIPTION: CT - Neck Angio - 12/15/2022 6:46 am CLINICAL HISTORY: DIZZINESS COMPARISON: None. TECHNIQUE: CT HEAD ANGIOGRAPHY WITH IV CONTRAST, CT NECK ANGIOGRAPHY WITH IV CONTRAST on 12/15/2022 3: 25 AM CDT This exam was performed according to our departmental dose-optimization program, which includes autom ated exposure control, adjustment of the mA and/or kV according to patient size and/or use of iterati ve reconstruction technique. MIP reconstructions were generated. Stenoses are calculated by NASCET criteria. FINDINGS: The visualized aortic arch and origins of the great vessels unremarkable. The common carotid arteries are patent and symmetric bilaterally. No hemodynamically significant stenosis is observed at the common carotid bifurcations or origins of the internal carotid arteries bilaterally. Vertebral arteries are unremarkable without evidence of pseudoaneurysm, hemodynamically significant s tenosis, or dissection. Intracranially the cavernous segments of the internal carotid arteries are patent and symmetric bilat erally. Vertebral basilar system within normal limits for age. No aneurysm identified within the [place]. Anterior, middle, and posterior cerebral circulations are patent and symmetric bilaterally. Dural sinuses are well opacified and without filling defect. IMPRESSION: Unremarkable CT angiogram of the neck for age without dissection or hemodynamically sign ificant stenosis. Unremarkable CTA of the brain without evidence of hemodynamically significant stenosis, aneurysm or A VM. CAROTID STENOSIS REFERENCE USING NASCET CRITERIA: % ICA stenosis = (1 - narrowest ICA diameter/diameter of distal cervical ICA) x 100. Mild - <50% stenosis. Moderate - 50-69% stenosis. Severe - 70-94% stenosis. Near occlusion - 95-99% stenosis. Occluded - 100% stenosis. Electronically signed by: Serg Lund MD 12/15/2022 6:19 AM CDT Due to temporary technical issues with the PACS/Fluency reporting system, reports are being signed by the in house radiologists without review as a courtesy to insure prompt reporting. The interpreting radiologist is fully responsible for the content of the report.
--- NOTE | 2022-12-16 07:18 | EKG ---
Test Date: 2022-12-14 Test Time: 22:11:25 [employer]ing Mill Operator: DENIZ MEASUREMENT RESULTS: Intervals: Rate: 56 IN: 128 QRSD: 84 QT: 436 QTc: 420 [place]: P: 28 IN: 128 QRS: 5 T: 49 INTERPRETIVE STATEMENTS: Sinus bradycardia Otherwise normal ECG Compared to ECG 12/03/2022 21:12:15 Sinus rhythm no longer present ST (T wave) deviation no longer present Electronically Signed On 12-16-22 07:14:23 CDT by Xu Steele
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
== END 2022-12-15 11:15 | disposition home or self-care (01) ==
LOC: ER 20:52 → ERHOLD 12-15 07:06
PROVIDERS: ADMIT Hospitalist; ATTEND Hospitalist
DX: R07.9 Chest pain, unspecified (principal); R42 Dizziness and giddiness; R20.2 Paresthesia of skin; I10 Essential (primary) hypertension; F41.9 Anxiety disorder, unspecified; F43.10 Post-traumatic stress disorder, unspecified
CPT/HCPCS: 93005; 85025; 80048; 36415; 83735; 85610; 80061; 80076; 84443; 84484 ×3; 83880; 70450; 70496; 70498; 99284; Q9967; J8597; J2765; J1200; J1650; G0378 ×2